=== PATIENT | male | born 1950 | race Caucasian/White ===

== ENCOUNTER → 2016-12-21 | Outpatient (CLI) | payer OTHER ==
[~2016-12-21] MED LIST: ALL100 PO; AMLO-110 PO; ASPI81TA21 PO; ATEN50TA8 PO; ATOR-24 PO; CMD6 PO; CYAN500T PO; NIAC500T11 PO; WARF5TAB90 PO
[2016-12-21 12:34] LABS: BASO % 0.4 %; BASO ABS # 0.03 K/uL (0-0.2); COMPLETE YES; EOS % 2.4 %; HEMATOCRIT 47.8 % (42-52); IG% 0.1 %; LYMPH % 29.6 %; LYMPH ABS # 2.09 K/uL (1.2-3.4); MEAN CELL VOLUME 93.7 fL (80-100); MEAN CORPUSCULAR HEMOGLOBIN 32.9 pg (25-34); MEAN CORPUSCULAR HGB CONC 35.1 g/dl (32-36); MEAN PLATELET VOLUME 10.9 fL (7.4-10.4); MONO % 9.5 %; PLATELET COUNT 161 K/uL (130-400); WHITE BLOOD COUNT 7.06 K/uL (4.8-10.8)
[2016-12-21 13:16] LABS: BLOOD UREA NITROGEN 16 mg/dl (7-18); BUN/CREATININE RATIO 13.7 (10-20); CALCIUM 9.3 mg/dl (8.5-10.1); CARBON DIOXIDE 30 mmol/L (21-32); CHLORIDE 109 mmol/L (98-107); GLUCOSE 93 mg/dl (70-99); POTASSIUM 4.6 mmol/L (3.5-5.1); SODIUM 144 mmol/L (136-145)
== END | disposition home or self-care (01) ==
LOC: C.LAB1850 10:31
PROVIDERS: ATTEND Family Medicine
DX: R63.5 Abnormal weight gain (principal); I25.10 Atherosclerotic heart disease of native coronary artery without angina pectoris; I10 Essential (primary) hypertension

== ENCOUNTER → 2017-11-06 | Outpatient (CLI) | payer OTHER | END | disposition home or self-care (01) | LOC: C.PATHSPEC 17:06 | PROVIDERS: ATTEND Urology | DX: C61 Malignant neoplasm of prostate (principal) ==

== ENCOUNTER → 2018-01-08 | Outpatient (CLI) | payer OTHER ==
[~2018-01-08] MED LIST changes: +ASPI-319 PO; -ASPI81TA21 PO; +GADAVIST IV PRN
--- NOTE | 2018-01-08 13:18 | DIAGNOSTIC IMAGING REPORT ---
ADDENDUM Additional findings: Cystic changes evident in the left acetabulum and left femoral head consistent with degenerative change. No suspicious osseous lesion. Again, no lymphadenopathy in the pelvis. Nonspecific trace peritoneal fluid, possibly reactive. Electronically signed by: Carlito June M.D. 01/08/2018 1:23 PM Dictated Date/Time: 01/08/2018 1:23 PM ORIGINAL REPORT PROSTATE MRI COMBO CLINICAL HISTORY: 67 years-old Male presenting with PROSTATE CA Miguel 3+3 at the left base, Miguel 3+4 at the left mid gland. PSA 4.92 ng/mL on 07/18/2017. TECHNIQUE: Multisequence, multiplanar MR imaging of the prostate was performed before and after the administration of intravenous contrast. Additional postprocessing was performed on a separate [employer] workstation by the radiologist for 3-D volumetric segmentation of the prostate and contouring of region(s) of interest (DAYANA) for targeting. IV contrast: 12 mL of Gadavist. COMPARISON: None. FINDINGS: Prostate: The prostate measures 6.3 x 5.6 x 6.8 cm (DynaCAD prostate boundary segmentation volume 113 mL). PSA density (PSA/prostate volume): 0.044 ng/mL/mL. Severe changes of benign prostatic hyperplasia. The peripheral zone is atrophic diffusely. Precontrast T1 weighted imaging demonstrates few scattered foci of intrinsic T1 hyperintensity, possibly calcification or proteinaceous/hemorrhagic material. Gel spacers in place in the rectoprostatic recess, which is in expected position. No suspicious lesion is apparent in the transition or peripheral zones. Seminal vesicles normal. Bladder: Bladder wall thickening likely indicating chronic outlet obstruction. Bowel: Visualized portion of the rectum normal. Peritoneum: No free fluid in the pelvis. Lymph nodes: No lymphadenopathy in the visualized portion of the pelvis. Vasculature: Iliac vessels patent. Abdominal wall: Normal. Osseous structures: Normal bone marrow signal intensity. IMPRESSION: 1. No suspicious lesion in the transition or peripheral zones for targeted biopsy. 2. Benign prostatic hyperplasia. Electronically signed by: Carlito June M.D. 01/08/2018 1:16 PM Dictated Date/Time: 01/08/2018 1:07 PM
== END | disposition home or self-care (01) ==
LOC: C.MRIBC 07:40
PROVIDERS: ATTEND Radiology Radiation Oncology
DX: C61 Malignant neoplasm of prostate (principal); N40.0 Benign prostatic hyperplasia without lower urinary tract symptoms